=== PATIENT | male | born 1940 | race Caucasian/White ===

== ENCOUNTER 2018-12-10 09:53 | Day surgery (SDC) | payer BC, MEDICARE, OTHER ==
[2018-12-10] MEDS ORDERED: LIDOCAINE 2% MDV (20MG/ML) 20ML VIAL IV ONE (09:54)
[2018-12-10] MEDS ORDERED: PROPOFOL 10 MG/ML VIAL IV ONE (09:54)
--- NOTE | 2018-12-12 09:00 | Operative Note ---
DATE OF SURGERY: 12/10/2018 OPERATION: COLONOSCOPY to the cecum. INDICATION: Family history of colon cancer (mother). The patient returns at this time after 5 years for high-risk screening. ANESTHESIA: Intravenous sedation was administered by the department of anesthesiology and included Diprivan titrated to effect. PROCEDURE: Following informed consent from this alert individual including a discussion of the risks and benefits of the procedure and an opportunity for the patient to ask questions, the patient was in the left lateral decubitus position. A digital rectal examination was performed. No abnormalities were noted. Following this, the Olympus [id number] video colonoscope was inserted into the rectum without resistance. The rectal mucosa had a normal appearance with normal folds and distensibility. The colonoscope was advanced up through the colon to the level of the cecum without much difficulty. Throughout the bowel the mucosa appeared normal, the folds were normal, and the bowel was fairly well distensible. The cecum was defined by noting the appendiceal orifice and ileocecal valve. Scattered diverticula were noted throughout the sigmoid colon. The colon preparation overall was good. From the base of the cecum, the colonoscope was then slowly withdrawn. No abnormalities were noted except for the diverticulosis in the sigmoid colon. Retroflexion in the rectum did reveal moderate-size internal hemorrhoids. The endoscope was straightened and removed. The patient tolerated the procedure well and was returned to the recovery area in stable condition. IMPRESSION: 1. Sigmoid diverticulosis. 2. Moderate-size internal hemorrhoids. RECOMMENDATIONS: The patient was advised to follow up with his primary care team. He can have a high-risk screening colonoscopy in 5 years' time if he desires. As always, thank you for allowing me to participate in the care of your patient. CC: BRIDGETTE Peguero
== END 2018-12-10 11:29 | disposition home or self-care (01) ==
LOC: HOP 09:53
PROVIDERS: ATTEND Internal Medicine Gastroenterology
DX: Z12.11 Encounter for screening for malignant neoplasm of colon (principal); Z80.0 Family history of malignant neoplasm of digestive organs; K57.30 Diverticulosis of large intestine without perforation or abscess without bleeding; I10 Essential (primary) hypertension
CPT/HCPCS: 00812; G0105